=== PATIENT | male | born 1960 | race Caucasian/White ===

== ENCOUNTER 2024-06-06 16:54 | Emergency (ER) | payer MEDICARE, OTHER, SELFPAY ==
[2024-06-06 16:56] VITALS: BP 117/89
[2024-06-06 17:58] VITALS: BMI 26.3
[2024-06-06 18:00] VITALS: BP 127/73
[2024-06-06 18:58] LABS: % Basophils 0.5 % (0-2); % Immature Granulocytes 0.1 % (0-0.5); % Lymphocytes 26.3 % (20.5-51.1); % Monocytes 8.4 % (1.7-9.3); % Neutrophils 61.7 % (42.2-75.2); Absolute Eosinophils 0.2 10^3/uL (0-0.7); Absolute Lymphocytes 2.1 10^3/uL (1.2-3.4); Absolute Monocytes 0.7 10^3/uL (0.1-0.6); Absolute Neutrophils 4.9 10^3/uL (1.4-6.5); Hematocrit 40.1 % (39.0-52.0); Hemoglobin 14.1 g/dL (13.0-18.0); Mean Corp Hgb Conc. 35.2 g/dL (33.0-37.0); Mean Corpuscular Hgb 31.8 pg (27.0-31.0); Mean Corpuscular Volume 90.5 fL (80.0-94.0); Mean Platelet Volume 10.8 fL (7.4-10.4); Nucleated Red Blood Cells % 0 % (-); Platelet Count 222 10^3/uL (130-400); Red Blood Cell Count 4.43 10^6/uL (4.70-6.10); Red Cell Dist. Width 13.1 % (11.5-14.5); White Blood Cell Count 7.9 10^3/uL (4.8-10.8)
--- NOTE | 2024-06-06 19:00 | ED.GENMED ---
History of Present Illness
General
Chief Complaint: Musculo-Skeletal Complaint
Source: patient
Time Seen by Provider: 06/06/24 18:07
History of Present Illness
History of Present Illness:
63-year-old male presenting to the emergency department for evaluation of right lower extremity erythema, edema and pain that been present for the last 5 days. Patient initially presented to a separate hospital and had an ultrasound done and was
told he likely had phlebitis and that it would likely resolve in 2 weeks. Patient spoke to her primary care provider who wanted him to come to the emergency department again for further evaluation and possibly started on anticoagulant. Patient
states he is confused as to why he was never started on an anticoagulant in the first place. He is overall unsure as to how this started as he denies any trauma or fevers. Patient does note that he quit cigarettes about 3 years ago but currently
vapes daily. Denies any history of similar. No other concerns at this time.
Past History
Past History
ED Past Medical History: None
ED Past Surgical History: Orthopedic
Social History
Tobacco: Vaping
Alcohol: None
Drug: None
Living: with family
Review of Systems
Review of Systems
All Other Systems: ROS reviewed and negative except as documented in HPI and ROS
Phy Exam
Physical Exam
Physical Exam:
GENERAL: Alert , in no apparent distress
EYE: conjunctiva clear
Head: Normocephalic atraumatic
NECK: Supple,
ENT: mmm.
LUNGS: no acute respiratory distress
NEUROLOGICAL: Alert and oriented
SKIN: Warm and dry, Right inner proximal thigh is erythematous which extends into the mid right lower leg. There is a palpable cord in this area. It is tender to the touch and hot to the touch.
MUSCULOSKELETAL: well perfused. Easily palpable pedal and tibial pulses. Cap refill less than 2 seconds and sensation is grossly intact to light touch.
PSYCH: Normal and appropriate interaction.
Scores
Heart Failure Risk
Heart Failure Risk Score: Not Applicable
Heart Score for Chest Pain Patients
STEMI patient?: Not applicable
Withdrawal Assessment of Alcohol
Withdrawal Assessment Completed?: Not applicable
Course
Orders/Labs/Results
Orders:
Orders
06/06/24 18:31
US Periph Venous LOWER Ext RT Urgent
Comment:
Reason For Exam: erythema, edema, palpable chord
06/06/24 18:51
Basic Metabolic Panel Urgent
Complete Blood Count/With Diff Urgent
06/06/24 20:11
Apixaban [Eliquis] 10 mg PO NOW STA
Tramadol HCl [Ultram] 25 mg PO NOW STA
Abnormal Lab Results
06/06/24
18:51
RBC 4.43 L 10^6/uL
(4.70-6.10)
MCH 31.8 H pg
(27.0-31.0)
MPV 10.8 H fL
(7.4-10.4)
Absolute Monos (auto) 0.7 H 10^3/uL
(0.1-0.6)
Sodium 134 L mmol/L
(135-145)
Glucose 101 H mg/dl
(70-99)
06/06/24 18:51
06/06/24 18:51
Vital Signs
Initial and Last Documented VS:
Initial Vital Signs
Temp Pulse Resp BP Pulse Ox
98.1 F 68 18 117/89 97
06/06/24 16:56 06/06/24 16:56 06/06/24 16:56 06/06/24 16:56 06/06/24 16:56
Last Documented Vital Signs
Temp Pulse Resp BP Pulse Ox
98.3 F 58 20 140/78 98
06/06/24 19:59 06/06/24 19:59 06/06/24 19:59 06/06/24 19:59 06/06/24 19:59
MDM/Problems Addressed
Differential Diagnosis Includes:
Phlebitis, DVT, cellulitis
MDM/Problems Addressed:
63-year-old male presenting to the emergency department for evaluation at the request of primary care provider to be reevaluated for right leg edema and erythema with concern for phlebitis versus DVT. Patient had an ultrasound done in outside
facility and brought the report with him which does appear to show only phlebitis but the radiology read was somewhat confusing. Will reobtain an ultrasound here to further assess and obtain blood work. Disposition pending.
*Radiology
Radiology exam reviewed: radiology read reviewed
*Pulse Oximetry
Patient hypoxic: no
*Critical Care Note
Total Time (30-74mins, 75-104mins- exclusive of procedures): Not Applicable
Data Reviewed
Review of Other/Old Records Reveals: Records and Radiology Studies
Patient Management
Discussion with other providers: Recovery Collector and Radiologist
Escalation/DeEscalation of care consider admission/obs:
I was contacted by radiology that patient does have thrombus in the right greater saphenous vein as well as the right common femoral vein at the greater saphenou vein junction. Due to location of the DVT and phlebitis I contacted on-call vascular
surgeon, Dr. De Los Santos, states it is okay for patient to be discharged home on Eliquis. Patient's pharmacy currently closed so we will give first dose of Eliquis here. He is requesting something for pain and has done well with tramadol in the past.
Prescriptions for both of these were sent to patient's pharmacy. Patient will contact his primary care provider in the morning for follow-up. Aware of return precautions to the ER.
ED Attending Note
-
Portions of this chart may have been created with voice recognition software.� Occasional wrong word or��sound alike� substitutions may have occurred due to the inherent limitations of voice recognition software.
Discharge Plan
Departure
Patient Disposition: Home (Routine Discharge)
Date of Disposition: 06/06/24
Time of Disposition: 20:07
Patient with high blood pressure during this ER visit?: Yes
Discharge Problem:
Acute deep vein thrombosis (DVT) of femoral vein of right lower extremity, Phlebitis of leg, right, superficial
Instructions: Deep vein thrombosis (blood clot in the leg)
Prescriptions:
New
Eliquis 5 mg tablet
5 mg PO BID Qty: 70 0RF
Rx Instructions:
Take 2 tab PO BID x 7 days then take 1 tab PO BID for remaining days
tramadol 25 mg tablet
25 mg PO BID PRN (Reason: Pain) Qty: 6 0RF
Referrals:
Alberto Hurtado MD [Family Provider] -
Interventions
Interventions:
*Risk Screen - Suicide Last Done: 06/06/24 17:58
*General Assessment Last Done: 06/06/24 17:58
*Neglect/Abuse Screening Last Done: 06/06/24 17:58
ED- Fall Risk Assessment Last Done: 06/06/24 17:58
*ED COVID-19 Vaccine History Last Done: 06/06/24 17:58
ED-Musculoskeletal Assessment Last Done: 06/06/24 19:59
Discharge Date and Time
Print Language: [id number]
[2024-06-06 19:11] LABS: Blood Urea Nitrogen 20 mg/dl (9-20); Calcium 9.4 mg/dl (8.4-10.2); Carbon Dioxide 26 mmol/L (22-30); Chloride 101 mmol/L (98-107); Estimated Creatinine Clearance 84 ml/min; Glucose 101 mg/dl (70-99); Potassium 4.2 mmol/L (3.5-5.1); Sodium 134 mmol/L (135-145); eGFR > 60.00
[2024-06-06 19:59] VITALS: BP 140/78
[2024-06-06] MEDS: ULTRAM 25 MG PO (20:20)
[2024-06-06] MEDS: ELIQUIS 10 MG PO (20:21)
[2024-06-06 21:09] VITALS: BP 150/80
== END 2024-06-06 21:14 | disposition home or self-care (01) ==
LOC: EMR 16:54
PROVIDERS: Physician Assistant Medical; EMERGENCY PHYSICIAN Student in an Organized Health Care Education/Training Program; FAMILY PHYSICIAN Internal Medicine
DX: I82.411 Acute embolism and thrombosis of right femoral vein (principal); R60.0 Localized edema; R41.0 Disorientation, unspecified; F17.290 Nicotine dependence, other tobacco product, uncomplicated; Z79.01 Long term (current) use of anticoagulants
CPT/HCPCS: 99284; 80048; 85025; 93971